=== PATIENT | female | born 1995 ===

== ENCOUNTER 2021-06-02 14:43 | Outpatient (CLI) | payer OTHER | END 2021-06-02 15:43 | disposition home or self-care (01) | LOC: PRENATAL 14:43 | PROVIDERS: ATTEND Obstetrics & Gynecology Maternal & Fetal Medicine | DX: Z36.89 Encounter for other specified antenatal screening (principal); O36.80X1 Pregnancy with inconclusive fetal viability, fetus 1; Z3A.15 15 weeks gestation of pregnancy ==

== ENCOUNTER 2021-07-12 09:51 | Outpatient (CLI) | payer OTHER | END 2021-07-12 11:20 | disposition home or self-care (01) | LOC: PRENATAL 09:51 | PROVIDERS: ATTEND Obstetrics & Gynecology Maternal & Fetal Medicine | DX: O35.0XX1 Maternal care for (suspected) central nervous system malformation in fetus, fetus 1 (principal); O35.3XX1 Maternal care for (suspected) damage to fetus from viral disease in mother, fetus 1; O98.512 Other viral diseases complicating pregnancy, second trimester; Z36.89 Encounter for other specified antenatal screening; Z3A.20 20 weeks gestation of pregnancy ==

== ENCOUNTER 2021-10-04 09:26 | Outpatient (CLI) | payer OTHER | END 2021-10-04 10:25 | disposition home or self-care (01) | LOC: PRENATAL 09:26 | PROVIDERS: ATTEND Obstetrics & Gynecology Maternal & Fetal Medicine | DX: O26.849 Uterine size-date discrepancy, unspecified trimester (principal); O35.0XX0 Maternal care for (suspected) central nervous system malformation in fetus, not applicable or unspecified; Z3A.32 32 weeks gestation of pregnancy ==

== ENCOUNTER 2021-11-19 13:15 | Inpatient (IN) | payer OTHER ==
[~2021-11-19] VITALS: Ht 162.6 cm; Wt 72.6 kg
[2021-11-19] MEDS ORDERED: PRENATAL TABLE1 EAC2 PO (22:18)
[2021-11-19] MEDS ORDERED: IRON325 MG PO (22:18)
== END 2021-11-22 13:12 | disposition home or self-care (01) | DRG 807 ==
LOC: LDR 22:12 → OB/GYN 22:12 → SURG-SUITE 11-20 13:22 → OB/GYN 11-26 13:15
PROVIDERS: ADMIT Student in an Organized Health Care Education/Training Program; ATTEND Student in an Organized Health Care Education/Training Program
PROC: 4A1HXCZ Monitoring of Products of Conception, Cardiac Rate, External Approach (ICD-10-PCS; 2021-11-19)
PROC: 10E0XZZ Delivery of Products of Conception, External Approach (ICD-10-PCS; principal; 2021-11-20)
PROC: 0HQ9XZZ Repair Perineum Skin, External Approach (ICD-10-PCS; 2021-11-20)
DX: O70.0 First degree perineal laceration during delivery (principal); Z37.0 Single live birth; O99.820 Streptococcus B carrier state complicating pregnancy; Z3A.39 39 weeks gestation of pregnancy; Z20.822 Contact with and (suspected) exposure to COVID-19